=== PATIENT | female | born 1990 | race Caucasian/White ===

== ENCOUNTER 2017-02-19 16:57 | Emergency (ER) | payer OTHER ==
[2017-02-19 17:12] VITALS: BMI 23.8
[2017-02-19] MEDS ORDERED: morphine CARPU-JECT 2 MG/1 ML DISP.SYRIN IVPUSH ONE (18:09)
[2017-02-19] MEDS ORDERED: KETOROLAC TROMETHAMINE 30 MG/1 ML VIAL IVPUSH ONE (18:09)
[2017-02-19] MEDS ORDERED: ONDANSETRON 4 MG/2 ML VIAL IVPUSH ONE (18:09)
[2017-02-19] MEDS ORDERED: KETOROLAC TROMETHAMINE 30 MG/1 ML VIAL ONE (18:23)
[2017-02-19] MEDS ORDERED: morphine CARPU-JECT 2 MG/1 ML DISP.SYRIN ONE (18:23)
[2017-02-19] MEDS ORDERED: ONDANSETRON 4 MG/2 ML VIAL ONE (18:23)
--- NOTE | 2017-02-19 18:39 | PDOC ---
History of Present Illness <Willy Moreau - Last Filed: 02/19/17 18:38> - General History Source: Patient Exam Limitations: No Limitations - History of Present Illness Initial Comments: 02/19/17 18:43 The patient is a 26 year old female presenting with her father with a significant past medical history of anxiety, depression and ovarian cysts, who presents to the emergency department with abdominal pain, nausea and vomit onset today. She describes her abdominal pain as localized in the right lower quadrant, moderate in severity. She denies any modifying factors. She states the last time she ate was around 1:00pm, when she ate a banana and she was not able to keep it down. She describes her vomit as nonbilious and nonbloody. The patient denies chest pain, shortness of breath, headache and dizziness. Denies fever, chills, diarrhea and constipation. Denies dysuria, frequency, urgency and hematuria. Allergies: None Past surgical history: None reported Social history: Alcohol use. No tobacco or drug use reported <Maninder Mckeon - Last Filed: 02/19/17 18:44> - General Chief Complaint: Pain Stated Complaint: PAIN, ACUTE Time Seen by Provider: 02/19/17 17:59 Past History - Past Medical History Psychiatric Problems: Yes (depression/anxeity) - Psycho/Social/Smoking Cessation Hx Anxiety: No Suicidal Ideation: No Smoking History: Never smoked Have you smoked in the past 12 months: No Information on smoking cessation initiated: No Hx Alcohol Use: No Drug/Substance Use Hx: No Substance Use Type: Alcohol <Willy Moreau - Last Filed: 02/19/17 18:38> <Maninder Mckeon - Last Filed: 02/19/17 18:44> - Past Medical History Allergies/Adverse Reactions: Allergies Allergy/AdvReac Type Severity Reaction Status Date / Time No Known Allergies Allergy Verified 02/19/17 17:08 Review of Systems - Review of Systems Able to Perform ROS?: Yes Comments:: 02/19/17 18:44 GENERAL/CONSTITUTIONAL: No fever or chills. No weakness. HEAD, EYES, EARS, NOSE AND THROAT: No change in vision. No ear pain or discharge. No sore throat. CARDIOVASCULAR: No chest pain or shortness of breath RESPIRATORY: No cough, wheezing, or hemoptysis. GASTROINTESTINAL: (+) Abdominal pain, nausea and vomit. No diarrhea or constipation. GENITOURINARY: No dysuria, frequency, or change in urination. MUSCULOSKELETAL: No joint or muscle swelling or pain. No neck or back pain. SKIN: No rash NEUROLOGIC: No headache, vertigo, loss of consciousness, or change in strength/ sensation. ENDOCRINE: No increased thirst. No abnormal weight change HEMATOLOGIC/LYMPHATIC: No anemia, easy bleeding, or history of blood clots. ALLERGIC/IMMUNOLOGIC: No hives or skin allergy. <Maninder Mckeon - Last Filed: 02/19/17 18:44> *Physical Exam - Vital Signs Last Vital Signs Temp Pulse Resp BP Pulse Ox 98.8 F 120 H 20 112/74 100 02/19/17 17:08 02/19/17 17:08 02/19/17 17:08 02/19/17 17:08 02/19/17 17:08 <Willy Moreau - Last Filed: 02/19/17 18:38> - Vital Signs Last Vital Signs Temp Pulse Resp BP Pulse Ox 98.8 F 120 H 20 112/74 100 02/19/17 17:08 02/19/17 17:08 02/19/17 17:08 02/19/17 17:08 02/19/17 17:08 - Physical Exam Comments: 02/19/17 18:44 GENERAL: Awake, alert, and fully oriented, in no acute distress HEAD: No signs of trauma, normocephalic, atraumatic EYES: PERRLA, EOMI, sclera anicteric, conjunctiva clear ENT: Auricles normal inspection, hearing grossly normal, nares patent, oropharynx clear without exudates. Moist mucosa NECK: Normal ROM, supple, no lymphadenopathy, JVD, or masses LUNGS: No distress, speaks full sentences, clear to auscultation bilaterally HEART: Regular rate and rhythm, normal S1 and S2, no murmurs, rubs or gallops, peripheral pulses normal and equal bilaterally. ABDOMEN: (+) Tenderness right lower quadrant. No paratenial signs. Soft, normoactive bowel sounds. No guarding, no rebound. No masses EXTREMITIES: Normal inspection, Normal range of motion, no edema. No clubbing or cyanosis. NEUROLOGICAL: Cranial nerves II through XII grossly intact. Normal speech, normal gait, no focal sensorimotor deficits SKIN: Warm, Dry, normal turgor, no rashes or lesions noted. <Maninder Mckeon - Last Filed: 02/19/17 18:44> ED Treatment Course - RADIOLOGY Radiology Studies Ordered: Category Date Time Status ABDOMEN & PELVIS CT WITH CONTR [CT] Stat CT Scan 02/19/17 18:10 Ordered TRANSVAGINAL ULTRASOUND US [US] Stat Ultrasound 02/19/17 18:10 Ordered <Willy Moreau - Last Filed: 02/19/17 18:38> Medical Decision Making - Medical Decision Making 02/19/17 18:[address] abdomen will be obtained to rule out appendicitis and ruptured ovarian cyst. <Maninder Mckeon - Last Filed: 02/19/17 18:44> *DC/Admit/Observation/Transfer - Attestations Physician Attestion: 02/19/17 18:39 I, Dr. Willy Moreau, attest that this document has been prepared under my direction and personally reviewed by me in its entirety. I further attest, that it accurately reflects all work, treatment, procedures and medical decision -making performed by me. <Willy Moreau - Last Filed: 02/19/17 18:38> - Attestations Scribe Attestion: 02/19/17 18:44 Documentation prepared by Maninder Mckeon, acting as electromedical equipment technician for Willy Moreau MD <Maninder Mckeon - Last Filed: 02/19/17 18:44> - Referrals Referrals: Mainor Brooks [Primary Care Provider] -
[2017-02-19 19:24] LABS: INR 1.09 (0.82-1.09)
[2017-02-19 19:30] LABS: ALBUMIN 4.3 g/dl (3.4-5.0); ALK PHOS 77 U/L (45-117); ANION GAP 11 (8-16); BILIRUBIN,TOTAL 0.9 mg/dL (0.2-1.0); CALCIUM 9.4 mg/dL (8.5-10.1); CO2 22 mmol/L (21-32); GLUCOSE,RANDOM 95 mg/dL (74-106); SGPT/ALT 17 U/L (12-78); TOT PROT 7.8 g/dl (6.4-8.2)
[2017-02-19 19:33] LABS: SGOT/AST 25 U/L (15-37)
[2017-02-19] MEDS ORDERED: SODIUM CHLORIDE 1,000 ML IV STA (20:32)
--- NOTE | 2017-02-19 20:32 | PDOC ---
*Physical Exam - Vital Signs Last Vital Signs Temp Pulse Resp BP Pulse Ox 98.8 F 120 H 20 112/74 100 02/19/17 17:08 02/19/17 17:08 02/19/17 17:08 02/19/17 17:08 02/19/17 17:08 ED Treatment Course - LABORATORY CBC & Chemistry Diagram: 02/19/17 21:00 02/19/17 18:50 - ADDITIONAL ORDERS Additional order review: Laboratory Results 02/19/17 02/19/17 02/19/17 18:52 18:50 18:50 INR 1.09 Sodium 135 L Potassium 4.3 Chloride 102 Carbon Dioxide 22 Anion Gap 11 BUN 9 Creatinine 1.0 Creat Clearance w eGFR > 60 Random Glucose 95 Calcium 9.4 Total Bilirubin 0.9 AST 25 ALT 17 Alkaline Phosphatase 77 Total Protein 7.8 Albumin 4.3 Lipase 111 Serum , Qual Negative 02/19/17 18:52 RBC Cancelled MCV Cancelled MCHC Cancelled RDW Cancelled MPV Cancelled Neutrophils % Cancelled Lymphocytes % Cancelled Monocytes % Cancelled Eosinophils % Cancelled Basophils % Cancelled - Medications Given in the ED: ED Medications Discontinued Medications Generic Name Dose Route Start Last Admin Trade Name Freq PRN Reason Stop Dose Admin Ketorolac Tromethamine 30 mg 02/19/17 18:09 02/19/17 18:30 Toradol Injection - IVPUSH 02/19/17 18:10 30 mg ONCE ONE Administration Morphine Sulfate 2 mg 02/19/17 18:09 02/19/17 18:30 Morphine Injection - IVPUSH 02/19/17 18:10 2 mg ONCE ONE Administration Ondansetron HCl 4 mg 02/19/17 18:09 02/19/17 18:30 Zofran Injection IVPUSH 02/19/17 18:10 4 mg ONCE ONE Administration Medical Decision Making - Medical Decision Making 02/19/17 20:39 Pt reassessed s/p CT and sono. States that her pain is much better. Discussed results of sono with her. She has gynaecological oncologist appt later this week. Will recheck vitals after IV fluids are complete. If improved, will DC home. *DC/Admit/Observation/Transfer Diagnosis at time of Disposition: Ovarian cyst - Discharge Dispostion Disposition: HOME Condition at time of disposition: Stable Admit: No - Prescriptions Prescriptions: Ibuprofen [Motrin -] 600 mg PO TID PRN #21 tablet PRN Reason: Pain Oxycodone HCl/Acetaminophen [Percocet 5-325 mg Tablet] 1 tab PO Q6H PRN #12 tablet MDD 4 tabs PRN Reason: Severe Pain - Referrals Referrals: Mainor Brooks [Primary Care Provider] - - Patient Instructions Printed Discharge Instructions: DI for Ovarian Cyst - Post Discharge Activity
[2017-02-19 21:14] LABS: BASOPHIL 0.3 % (0-2.0); MCH 28.3 pg (25.7-33.7); MCHC 33.5 g/dl (32.0-36.0); MEAN CELL VOLUME 84.4 fl (80-96); MEAN PLT VOLUME 8.1 fl (7.5-11.1); NEUTROPHILS 92.1 % (42.8-82.8); PLATELET COUNT 266 K/MM3 (134-434); RDW 12.4 % (11.6-15.6); WHITE BLOOD COUNT 15.6 K/mm3 (4.0-10.0)
[2017-02-19 21:19] LABS: URINE APPEARANCE CLEAR; URINE BILIRUBIN NEGATIVE (NEGATIVE); URINE COLOR YELLOW; URINE GLUCOSE (UA) NEGATIVE (NEGATIVE); URINE KETONE 2+ (NEGATIVE); URINE LEUK ESTERASE NEGATIVE (NEGATIVE); URINE NITRITE NEGATIVE (NEGATIVE); URINE UROBILINOGEN NEGATIVE E.U./dl (0.2-1.0)
[2017-02-19 21:20] LABS: URINE BLOOD 2+ (NEGATIVE); URINE PROTEIN 2+ (NEGATIVE)
[2017-02-19 21:26] LABS: URINE BACTERIA RARE /hpf (NONE SEEN); URINE HYALINE CAST 1 /lpf; URINE MUCUS FEW; URINE RBC 19 /hpf (0-3); URINE WBC 3 /hpf (3-5)
[2017-02-19 22:24] VITALS: BP 104/64; PULSE 94; TEMP 98.7
== END 2017-02-19 22:50 | disposition home or self-care (01) ==
LOC: JER 16:57
PROC: 3E0337Z Introduction of Electrolytic and Water Balance Substance into Peripheral Vein, Percutaneous Approach (ICD-10-PCS; principal; 2017-02-19)
PROC: 3E033NZ Introduction of Analgesics, Hypnotics, Sedatives into Peripheral Vein, Percutaneous Approach (ICD-10-PCS; 2017-02-19)
PROC: 3E033GC Introduction of Other Therapeutic Substance into Peripheral Vein, Percutaneous Approach (ICD-10-PCS; 2017-02-19)
PROC: 3E0333Z Introduction of Anti-inflammatory into Peripheral Vein, Percutaneous Approach (ICD-10-PCS; 2017-02-19)
DX: N83.292 Other ovarian cyst, left side (principal); N83.291 Other ovarian cyst, right side
CPT/HCPCS: 36415; 74177-TC; 76830-TC; 80053; 81003; 81015; 83690; 84703; 85025; 85610; 96361; 96374; 96375; 99282-25; Q9967